=== PATIENT | female | born 1965 | race Caucasian/White ===

== ENCOUNTER 2024-06-28 09:24 | Emergency (ER) | payer SELFPAY ==
[~2024-06-28] VITALS: Ht 170.2 cm; Wt 74.0 kg
[2024-06-28] MEDS ORDERED: HYDROCODON-ACE1 EA10 PO (12:09)
[2024-06-28 12:34] VITALS: BP 165/97
== END 2024-06-28 12:34 | disposition home or self-care (01) ==
LOC: ED 09:24
DX: S29.9XXA Unspecified injury of thorax, initial encounter (principal); W10.9XXA Fall (on) (from) unspecified stairs and steps, initial encounter
CPT/HCPCS: 71100; 99283